=== PATIENT | female | born 1985 | race Two or more races ===

== ENCOUNTER 2018-10-27 12:08 | Outpatient (CLI) | payer OTHER | END 2018-10-27 16:57 | disposition home or self-care (01) | LOC: LAB 12:08 | DX: K63.5 Polyp of colon (principal); D12.6 Benign neoplasm of colon, unspecified; D37.4 Neoplasm of uncertain behavior of colon; K56.690 Other partial intestinal obstruction ==

== ENCOUNTER 2018-11-02 07:40 | Inpatient (IN) | payer OTHER ==
[~2018-11-02] VITALS: Ht 162.6 cm; Wt 165.0 kg
[2018-11-07] MEDS ORDERED: HYOSCYAMINE0.125 M1 SL (09:00)
[2018-11-07] MEDS ORDERED: CHOLESTYRAMINE L4 GM PO (09:00)
[2018-11-07] MEDS ORDERED: NAPR500T14 PO (09:01)
[2018-11-07] MEDS ORDERED: OXYC1TAB9 PO (09:01)
[2018-11-07] MEDS ORDERED: Intestinex CAP PO (09:01)
== END 2018-11-07 11:19 | disposition home or self-care (01) | DRG 330 ==
LOC: O/R 11-04 06:32 → SURH 11-04 07:00
PROVIDERS: ADMIT Surgery
PROC: 0DBQ8ZX Excision of Anus, Via Natural or Artificial Opening Endoscopic, Diagnostic (ICD-10-PCS; 2018-11-04)
PROC: 0DTF4ZZ Resection of Right Large Intestine, Percutaneous Endoscopic Approach (ICD-10-PCS; principal; 2018-11-04 07:00)
DX: C18.7 Malignant neoplasm of sigmoid colon (principal); K56.690 Other partial intestinal obstruction; D12.8 Benign neoplasm of rectum; K57.30 Diverticulosis of large intestine without perforation or abscess without bleeding; E83.42 Hypomagnesemia; E88.09 Other disorders of plasma-protein metabolism, not elsewhere classified

== ENCOUNTER 2018-11-02 10:39 | Day surgery (SDC) | payer OTHER | END 2018-11-02 17:20 | disposition home or self-care (01) | LOC: AMB-ENDOS 10:39 | DX: D12.8 Benign neoplasm of rectum (principal) ==

== ENCOUNTER 2018-12-09 05:50 | Day surgery (SDC) | payer OTHER ==
[~2018-12-09 05:50] MED LIST: CHOLESTYRAMINE L4 GM PO; HYOSCYAMINE0.125 M1 SL; IMODIUM A-D2 M2 PO; Intestinex CAP PO; NAPR500T14 PO; OXYC1TAB9 PO
[2018-12-09] MEDS ORDERED: PERCOCET 5-3251 EACH PO (08:44)
== END 2018-12-09 10:15 | disposition home or self-care (01) ==
LOC: CIR.AMB 05:50
DX: C18.7 Malignant neoplasm of sigmoid colon (principal)
CPT/HCPCS: 36561; C1751

== ENCOUNTER 2020-05-29 13:35 | Emergency (ER) | payer OTHER ==
[~2020-05-29] VITALS: Ht 160 cm; Wt 76.7 kg
[~2020-05-29 13:35] MED LIST changes: +PERCOCET 5-3251 EACH PO
[2020-05-29] MEDS ORDERED: ORPHENADRINE C100 MG PO (18:40)
[2020-05-29] MEDS ORDERED: CELECOXIB100 MG PO (18:40)
== END 2020-05-29 18:53 | disposition home or self-care (01) ==
LOC: ER 13:35
DX: M54.12 Radiculopathy, cervical region (principal); M54.2 Cervicalgia; M62.838 Other muscle spasm; Z03.818 Encounter for observation for suspected exposure to other biological agents ruled out

== ENCOUNTER 2020-06-21 06:19 | Day surgery (SDC) | payer OTHER ==
[~2020-06-21 06:19] MED LIST changes: +CELECOXIB100 MG PO; +ORPHENADRINE C100 MG PO; +TYLENOL EXTRA500 MG PO
[2020-06-21] MEDS ORDERED: PERCOCET 5-3251 EACH PO (14:35)
== END 2020-06-21 16:15 | disposition home or self-care (01) ==
LOC: CIR.AMB 06:19
PROVIDERS: ATTEND Surgery
DX: C18.7 Malignant neoplasm of sigmoid colon (principal); Z20.828 Contact with and (suspected) exposure to other viral communicable diseases

== ENCOUNTER 2020-09-11 06:35 | Day surgery (SDC) | payer OTHER | END 2020-09-11 10:30 | disposition home or self-care (01) | LOC: AMB-ENDOS 06:35 | PROVIDERS: ATTEND Surgery | DX: K62.1 Rectal polyp (principal); Z20.828 Contact with and (suspected) exposure to other viral communicable diseases ==

== ENCOUNTER 2020-12-07 10:30 | Inpatient (IN) | payer OTHER ==
[~2020-12-07] VITALS: Ht 160 cm; Wt 78.9 kg
[2020-12-14] MEDS ORDERED: INTESTINEX680 M1 PO (08:23)
[2020-12-14] MEDS ORDERED: ULTRACET PO (08:23)
== END 2020-12-14 09:31 | disposition home or self-care (01) | DRG 395 ==
LOC: O/R 12-13 05:25 → SURG 12-13 05:25 → SURH 12-13 08:15 → SURG 12-13 10:26 → SURH 12-13 10:30 → SURG 12-14 09:31
PROVIDERS: ADMIT Surgery; ATTEND Surgery
PROC: 0DBP8ZX Excision of Rectum, Via Natural or Artificial Opening Endoscopic, Diagnostic (ICD-10-PCS; principal; 2020-12-13 08:15)
DX: D12.8 Benign neoplasm of rectum (principal); E88.09 Other disorders of plasma-protein metabolism, not elsewhere classified

== ENCOUNTER 2022-02-19 02:25 | Emergency (ER) | payer OTHER ==
[~2022-02-19] VITALS: Ht 162.6 cm; Wt 78.0 kg
[~2022-02-19 02:25] MED LIST changes: +INTESTINEX680 M1 PO; +ULTRACET PO
[2022-02-19] MEDS ORDERED: ZOFRAN8 MG PO ×2 (06:18→06:19)
[2022-02-19] MEDS ORDERED: LEVSIN/SL0.125 MG SL (06:19)
== END 2022-02-19 06:27 ==
LOC: ER 02:25
DX: R10.13 Epigastric pain (principal)

== ENCOUNTER 2024-08-18 11:56 | Inpatient (IN) | payer OTHER ==
[~2024-08-18] VITALS: Ht 160 cm; Wt 81.6 kg
[~2024-08-18 11:56] MED LIST changes: +LEVSIN/SL0.125 MG SL; +ZOFRAN8 MG PO
[2024-08-18] MEDS ORDERED: 0.9 % SODIUM CHLORIDE 1,000 ML IV STA (12:31)
[2024-08-18 13:13] LABS: HEMATOCRIT 38.9 % (36.0-45.00); HEMOGLOBIN 13.1 g/dL (12.0-15.00); MEAN CORPUSCULAR HEMOGLOBIN 29.7 pg (27.00-32.0); MEAN CORPUSCULAR HGB CONC 33.7 g/dl (32.0-36.0); PLATELET COUNT 263 K/uL (150-450); RED BLOOD COUNT 4.42 M/uL (4.00-6.00); RED CELL DISTRIBUTION WIDTH 13.6 % (11.5-14.5)
[2024-08-18 13:17] LABS: PH,URINE 5.5 (5.0-8.0); URINE APPEARANCE Cloudy; URINE BILIRRUBIN Small (NEGATIVE); URINE BLOOD Negative; URINE COLOR Orange; URINE GLUCOSE Negative (NEGATIVE); URINE LEUKOCYTE Moderate; URINE NITRATE Positive
[2024-08-18 13:21] LABS: URINE BACTERIA 401.9 uL (0.0-1933); URINE CAST 5.64 uL (0.0-1.40); URINE EPITHELIAL CELLS 71.7 uL (0.0-38.8); URINE RBC 18.1 uL (0.0-20.8)
[2024-08-18 13:25] LABS: URINE KETONE >=160 (NEGATIVE); URINE PROTEIN 100 (NEGATIVE)
[2024-08-18 13:32] LABS: URINE CRYSTALS FEW /HPF; URINE MUCUS MODERATE
[2024-08-18 14:27] LABS: CALCIUM 9.1 mg/dL (8.5-10.1); CREATININE SERUM 0.55 mg/dL (0.55-1.02); GFR 124.37; POTASSIUM 3.72 mEq/L (3.5-5.1)
[2024-08-18 14:34] LABS: INR 1.23; PROTHROMBIN TIME 13.2 SECONDS (9.0-11.5)
[2024-08-18] MEDS ORDERED: PANTOPRAZOLE SODIUM 40 MG/VIAL VIAL IV SCH (15:28)
[2024-08-18] MEDS ORDERED: RINGERS SOLUTION,LACTATED 1,000 ML IV SCH (15:30)
[2024-08-18] MEDS ORDERED: ONDANSETRON HCL 2 MG/ML VIAL IV PRN (15:30)
[2024-08-18] MEDS ORDERED: MORPHINE SULFATE 4 MG/ML VIAL IV PRN (15:45)
[2024-08-18 15:46] VITALS: BP 102/68
[2024-08-18] MEDS ORDERED: HYOSCYAMINE SULFATE 0.125 MG TAB.SUBL SL PRN (16:00)
[2024-08-18] MEDS ORDERED: METRONIDAZOLE/SODIUM CHLORIDE 500 MG/100 ML PIGGYBACK IV SCH (17:00)
[2024-08-18] MEDS ORDERED: levoFLOXacin IN DEXTROSE 5 % 500MG/100ML PIGGYBAG IV SCH (17:00)
[2024-08-18 17:35] VITALS: BP 106/70; O2SAT 100
[2024-08-18 18:01] LABS: ob NEGATIVE (NEGATIVE)
[2024-08-18 18:08] LABS: PARTIAL THROMBOPLASTIN TIME 44.1 SECONDS (22.0-34.0)
[2024-08-19 01:49] VITALS: BP 111/582; O2SAT 100
[2024-08-19 08:00] VITALS: BP 94/63; O2SAT 100
[2024-08-19 08:54] LABS: ALBUMIN 2.9 gm/dL (3.4-5.0); CREATININE SERUM 0.5 mg/dL (0.55-1.02); GFR 138.83; MAGNESIUM 1.8 mg/dL (1.8-2.4); PHOSPHOROUS 2.9 mg/dL (2.5-4.9); POTASSIUM 4.05 mEq/L (3.5-5.1)
[2024-08-19 08:59] LABS: C-REACTIVE PROTEIN 23.9 MG/DL (0.00-0.29)
[2024-08-19] MEDS ORDERED: LACTOBACILLUS ACIDOPHILUS 1 CAP CAP PO SCH (09:00)
[2024-08-19] MEDS ORDERED: ENOXAPARIN SODIUM 40 MG/0.4 ML SYRINGE SUBCUTANEO SCH (09:00)
[2024-08-19 09:27] LABS: HEMATOCRIT 32.7 % (36.0-45.00); HEMOGLOBIN 11.1 g/dL (12.0-15.00); MEAN CELL VOLUME 88.1 fL (80.00-100.00); MEAN CORPUSCULAR HEMOGLOBIN 29.8 pg (27.00-32.0); MEAN CORPUSCULAR HGB CONC 33.8 g/dl (32.0-36.0); PLATELET COUNT 221 K/uL (150-450); RED BLOOD COUNT 3.71 M/uL (4.00-6.00); RED CELL DISTRIBUTION WIDTH 13.3 % (11.5-14.5)
[2024-08-19 11:21] LABS: ERYTHROCYTE SEDIMENTATION RATE 75 mm/hr
[2024-08-19 16:00] VITALS: BP 123/62; O2SAT 99
[2024-08-20 01:03] VITALS: BP 100/81; O2SAT 98
[2024-08-20 08:00] VITALS: BP 92/61; O2SAT 98
[2024-08-20] MEDS ORDERED: CEFTRIAXONE SODIUM 2,000 MG VIAL IV SCH (09:00)
[2024-08-20 12:37] LABS: HEMATOCRIT 34.7 % (36.0-45.00); HEMOGLOBIN 11.4 g/dL (12.0-15.00); MEAN CELL VOLUME 89.5 fL (80.00-100.00); MEAN CORPUSCULAR HEMOGLOBIN 29.3 pg (27.00-32.0); MEAN CORPUSCULAR HGB CONC 32.7 g/dl (32.0-36.0); PLATELET COUNT 283 K/uL (150-450); RED BLOOD COUNT 3.88 M/uL (4.00-6.00); RED CELL DISTRIBUTION WIDTH 13.1 % (11.5-14.5)
[2024-08-20 13:01] LABS: INR 1.25; PROTHROMBIN TIME 13.4 SECONDS (9.0-11.5)
[2024-08-20 13:05] LABS: BILIRUBIN TOTAL 0.44 mg/dL (0.3-1.2); CALCIUM 9.1 mg/dL (8.5-10.1); CREATININE SERUM 0.47 mg/dL (0.55-1.02); GFR 149.1; MAGNESIUM 1.6 mg/dL (1.8-2.4); PHOSPHOROUS 2.7 mg/dL (2.5-4.9); POTASSIUM 3.59 mEq/L (3.5-5.1)
[2024-08-20 13:06] LABS: C-REACTIVE PROTEIN 31.7 MG/DL (0.00-0.29)
[2024-08-20 13:17] LABS: COL EPI 93 SECONDS (82-175)
[2024-08-20 13:18] LABS: PARTIAL THROMBOPLASTIN TIME 47.6 SECONDS (22.0-34.0)
[2024-08-20] MEDS ORDERED: MAGNESIUM SULFATE IN WATER 4 GM/100 ML PIGGYBACK IV NR (14:30)
[2024-08-20 15:44] VITALS: BP 96/51; O2SAT 98
[2024-08-20] MEDS ORDERED: AMINO ACIDS 4.25 %/DEXTROSE 5% 1,000 ML PERIFERAL SCH (17:00)
[2024-08-21] VITALS: BP 98/73; O2SAT 97
[2024-08-21 08:00] VITALS: BP 114/66; O2SAT 97
[2024-08-21 15:51] VITALS: BP 118/80; O2SAT 98
[2024-08-22] VITALS: BP 107/72; O2SAT 100
[2024-08-22 06:48] LABS: HEMATOCRIT 31.5 % (36.0-45.00); HEMOGLOBIN 10.8 g/dL (12.0-15.00); MEAN CELL VOLUME 86.3 fL (80.00-100.00); MEAN CORPUSCULAR HEMOGLOBIN 29.7 pg (27.00-32.0); MEAN CORPUSCULAR HGB CONC 34.4 g/dl (32.0-36.0); PLATELET COUNT 285 K/uL (150-450); RED BLOOD COUNT 3.65 M/uL (4.00-6.00); RED CELL DISTRIBUTION WIDTH 13.1 % (11.5-14.5)
[2024-08-22 07:14] LABS: ERYTHROCYTE SEDIMENTATION RATE 98 mm/hr
[2024-08-22 07:19] LABS: ALBUMIN 2.6 gm/dL (3.4-5.0); BILIRUBIN TOTAL 0.27 mg/dL (0.3-1.2); CALCIUM 8.6 mg/dL (8.5-10.1); CREATININE SERUM 0.37 mg/dL (0.55-1.02); GFR 196.51; GLOBULINA 3.7 G/DL (2.4-3.5); POTASSIUM 3.14 mEq/L (3.5-5.1); TOTAL PROTEIN 6.3 gm/dL (6.4-8.2)
[2024-08-22 07:22] LABS: C-REACTIVE PROTEIN 15.4 MG/DL (0.00-0.29)
[2024-08-22 08:00] VITALS: BP 115/68; O2SAT 97
[2024-08-22] MEDS ORDERED: DIATRIZOATE MEGLUMINE, SODIUM 30 ML BOTTLE PO STA (12:07)
[2024-08-22] MEDS ORDERED: POTASSIUM CHLORIDE 20MEQ/100ML H2O PB IV NR (14:00)
[2024-08-22 20:17] VITALS: BP 111/65; O2SAT 100
[2024-08-23 00:56] VITALS: BP 127/69; O2SAT 100
[2024-08-23 08:00] VITALS: BP 125/65; O2SAT 99
[2024-08-24 21:07] LABS: GIARDIA LAMBLIA EIA Negative (Negative)
== END 2024-08-23 11:35 | disposition home or self-care (01) | DRG 387 ==
LOC: ER 11:57 → SEC-K 15:51 → SURH 15:51
PROVIDERS: Emergency Medicine; Internal Medicine; Internal Medicine Geriatric Medicine; Internal Medicine Infectious Disease; ADMIT Surgery; ATTEND Surgery
PROC: BW21YZZ Computerized Tomography (CT Scan) of Abdomen and Pelvis using Other Contrast (ICD-10-PCS; principal; 2024-08-22)
DX: K50.00 Crohn's disease of small intestine without complications (principal); D72.829 Elevated white blood cell count, unspecified